=== PATIENT | male | born 1985 | race Caucasian/White ===

== ENCOUNTER 2023-12-13 11:04 | Outpatient (CLI) | payer BC, SELFPAY ==
--- NOTE | ~2023-12-13 | XR_ITS ---
3 VIEWS LUMBAR SPINE Ordering provider: Arnel Poon, LBD TEACHER History: . possible sciatic pain X 2 months, LT hip pain . Comparison: None. FINDINGS: VERTEBRAL BODIES: No visible fracture or subluxation. DISK SPACES: Normal. . SOFT TISSUES: Normal. IMPRESSION: No acute osseous abnormality lumbar spine. Reviewed, dictated and finalized at location A.
== END 2023-12-13 11:05 | disposition home or self-care (01) ==
PROVIDERS: PCP Physician Assistant; Visit Provider Registered Nurse
DX: M54.16 Radiculopathy, lumbar region (principal)
CPT/HCPCS: 72100

== ENCOUNTER 2024-11-14 12:52 | Outpatient (RCR) | payer BC, SELFPAY ==
--- NOTE | 2024-11-14 14:18 | OPREHPOC ---
Outpatient Therapy Plan of Care This is a Multidisciplinary Plan of Care that may contain components documented by all disciplines (PT, OT, and ST.) PT Problem 1 PT Problem #1 Knowledge Deficit PT Goal 1 Goal / Goal Update The patient will be independent in a home exercise program. Target Visit 4 PT Problem 2 PT Problem #2 Pain PT Goal 1 Goal / Goal Update The patient will report no greater than 2/10 left lower back and LE pain with standing for an hour. Target Visit 8 PT Problem 3 PT Problem #3 Impaired Functional Mobility PT Goal 1 Goal / Goal Update The patient will demonstrate 25% or less self perceived disability per the Back Index questionnaire. The patient will demonstrate the ability to lift 10# from floor to waist with proper body mechanics . The patient will demonstrate equal pelvic alignment for 1 week without MET. Target Visit 8 PT Problem 4 PT Problem #4 Impaired Strength PT Goal 1 Goal / Goal Update The patient will demonstrate 4/5 or greater left hip flexion, extension, and abduction with no pain elicited. Target Visit 8
--- NOTE | 2024-11-14 14:18 | PTOPEVAL1 ---
Assessment and note entered by Maki Lyons, PT Evaluation Information Assessment Status Evaluation ICD-10 Condition Codes (PT) Pain in low back M54.50 Onset 11/08/24 Subjective Information Matti Min reports he started having pain in his left lower back that starts in back and goes down the back of the leg and to the foot. He notes pain shoots into his leg when he stands up and when standing for longer periods. He denies numbness and tingling. He had a x-ray performed about 4-5 months ago that he believes was normal. He has tried chiropractic treatment that helps a little but the pain comes back. He is using muscle relaxer on average every other day to help when the pain is severe. He thinks the pain started after falling backward and landing on his hip. He has not had the hip x-rayed. He is unable to lift and move items at the same time. He also notes he limps when he first stands up and walks. Reported Pain Level Pain Score 1: Self Report Assessment PT Clinical Summary Matti Min presents with left low back pain with radiation into the left LE that has been present for about a year after falling onto his left hip. He has difficulty with initial standing, prolonged standing, and lifting items from the floor. He objectively demonstrates left anterior innominate rotation, tension in the left lumbar paraspinals, tenderness in the left SIJ and lumbar paraspinals, decreased core strength, decreased left hip strength, and tightness in bilateral hamstrings. He will benefit from skilled PT to address these limitations. Plan of Care Interventions Electrical Stimulation,Hot Pack/Cold Pack,Manual Therapy,Mechanical Traction,Neuro Re-education, Patient/Caregiver Education,Therapeutic Activities ,Therapeutic Exercise PT Services Indicated Yes Treatment Frequency and 2 times a week for 8 visits Duration These treatments will address the objective and functional deficits as defined above. The patient will be advanced safely and appropriately in order for the patient to progress towards his/her prior level of function. Additional exercises will be introduced and as well as a comprehensive home exercise program upon discharge, if needed, ?to ensure carryover of functional gains achieved in the clinic. This treatment plan has been reviewed and agreement upon by the patient.
--- NOTE | 2024-12-05 15:48 | PCPTNOTE ---
On 12/05/24, the student, [Kaylyn Farley], provided care and completed [facility] documentation on this patient. I have reviewed the student's documentation and agree with the findings.
--- NOTE | 2024-12-07 11:50 | OPREHPOC ---
Outpatient Therapy Plan of Care This is a Multidisciplinary Plan of Care that may contain components documented by all disciplines (PT, OT, and ST.) PT Problem 1 PT Problem #1 Knowledge Deficit PT Goal 1 Goal / Goal Update The patient will be independent in a home exercise program. Target Visit 4 Progress Met PT Problem 2 PT Problem #2 Pain PT Goal 1 Goal / Goal Update The patient will report no greater than 2/10 left lower back and LE pain with standing for an hour. Target Visit 8 Progress Met PT Problem 3 PT Problem #3 Impaired Functional Mobility PT Goal 1 Goal / Goal Update The patient will demonstrate 25% or less self perceived disability per the Back Index questionnaire. -met The patient will demonstrate the ability to lift 10# from floor to waist with proper body mechanics . -met The patient will demonstrate equal pelvic alignment for 1 week without MET. -met Target Visit 8 Progress Met PT Problem 4 PT Problem #4 Impaired Strength PT Goal 1 Goal / Goal Update The patient will demonstrate 4/5 or greater left hip flexion, extension, and abduction with no pain elicited. Target Visit 8 Progress Met
--- NOTE | 2024-12-07 11:51 | PTOPEVAL1 ---
Assessment and note entered by Maki Lyons, PT Evaluation Information Assessment Status Discharge ICD-10 Condition Codes (PT) Pain in low back M54.50 Onset 11/08/24 Subjective Information Matti Min reports he is feeling much better but he still gets a sharp pain when he first stands up . He is having less pain with standing for long periods and is tolerating work activities better. He does c/o frequent clicking around the left knee cap and pain around the outer knee with squatting . He feels he has improved enough that he can continue PT independently with a home exercise program. Reported Pain Level Pain Score 0: Self Report Assessment PT Clinical Summary Matti Min has completed 8 skilled PT visits for low back pain with radiation to the left LE. He is reporting significantly decreased pain and improved ability to perform work and daily activities. He is still having left knee pain and occasional pain in the lower back. He demonstrates left patella lateral tracking today that was addressed with a HEP. He has objective improvements in pelvic alignment maintaining neutral since his first treatment of MET; improved hip and core strength; and improved hamstring flexibility. He is independent in a HEP to continue for core, hip, and knee strengthening as well as LE flexibility. He is being discharged. Plan of Care Interventions Electrical Stimulation,Hot Pack/Cold Pack,Manual Therapy,Neuro Re-education,Patient/Caregiver Education,Therapeutic Exercise PT Services Indicated No Treatment Frequency and Discharge Duration These treatments will address the objective and functional deficits as defined above. The patient will be advanced safely and appropriately in order for the patient to progress towards his/her prior level of function. Additional exercises will be introduced and as well as a comprehensive home exercise program upon discharge, if needed, ?to ensure carryover of functional gains achieved in the clinic. This treatment plan has been reviewed and agreement upon by the patient.
== END 2024-12-07 20:00 | disposition home or self-care (01) ==
LOC: CHSPT 12:52
PROVIDERS: Visit Provider Family Medicine
DX: M54.50 Low back pain, unspecified (principal)
CPT/HCPCS: 97014; 97110; 97112; 97140; 97161; 97750; G0283

== ENCOUNTER 2025-01-27 10:02 | Outpatient (CLI) | payer BC, SELFPAY ==
--- NOTE | ~2025-01-27 | MR_ITS ---
EXAMINATION: MR lumbar spine wo con DATE: 01/27/2025 10:28 INDICATION: Low back pain radiating to the bilateral knees TECHNIQUE: Magnetic resonance imaging (MRI) of the lumbar spine was performed without intravenous contrast. Sequences included sagittal T2-weighted FSE, sagittal T2-weighted FS FSE, sagittal T1-weighted FSE, and axial T2-weighted FSE. COMPARISON: None FINDINGS: Alignment is normal. Vertebral body heights are normal. Normal marrow signal. Mild disc desiccation and mild disc height loss with annular fissure at L5-S1. Remaining discs are normal. The conus medullaris terminates at L1-L2. There is normal signal in the caudal spinal cord. Paravertebral soft tissues are unremarkable. The following disc levels are specifically discussed: T12-L1 and L1-L2: The disc does not extend beyond the endplate margin. There is mild bilateral facet joint osteoarthritis. There is no neural foraminal stenosis. There is no central canal stenosis. L2-L3 through L4-L5: Disc is minimally bulging. There is mild bilateral facet joint osteoarthritis. There is mild bilateral neural foraminal stenosis. There is no central canal stenosis. L5-S1: Disc is bulging with superimposed annular fissure and small central disc protrusion. There is mild bilateral facet joint osteoarthritis. There is mild bilateral neural foraminal stenosis. There is minimal central canal stenosis with mild narrowing of the left and right lateral recesses. IMPRESSION: 1. Minimal to mild lower lumbar predominant spondylosis with annular fissure and small central disc protrusion at L5-S1. Reviewed, dictated and finalized at location A. IMPRESSION: 1. Minimal to mild lower lumbar predominant spondylosis with annular fissure an d small central disc protrusion at L5-S1.
== END 2025-01-27 10:03 | disposition home or self-care (01) ==
LOC: CHSIMG 10:03
PROVIDERS: PCP Physician Assistant; Visit Provider Family Medicine
DX: M54.16 Radiculopathy, lumbar region (principal); M43.06 Spondylolysis, lumbar region; M51.27 Other intervertebral disc displacement, lumbosacral region
CPT/HCPCS: 72148